=== PATIENT | female | born 1950 | race Caucasian/White ===

== ENCOUNTER → 2017-04-14 14:26 | Outpatient (CLI) | payer MEDICARE, OTHER, SELFPAY ==
--- NOTE | 2017-04-14 14:36 | XR_ITS ---
EXAM: XR lumbar spine min 4V HISTORY: ITS.REASON: LOW BACK PAIN ORDERING PHYSICIAN: Be Eddy PATIENT AGE: 67 years COMPARISON: 01/12/2013 FINDINGS: Normal alignment. There is normal alignment. Mild degenerative disc disease is present at L4-L5 with minimal anterolisthesis of L4. Facet arthritic changes are present at L4, L5, and S1. No lytic or blastic change. IMPRESSION: Mild degenerative disc disease with facet arthritic change overall not significantly changed
== END ==
PROVIDERS: PCP Internal Medicine; Visit Provider Internal Medicine
DX: M54.5 Low back pain (principal)
CPT/HCPCS: 72110

== ENCOUNTER → 2017-08-26 06:10 | Outpatient (CLI) | payer MEDICARE, OTHER, SELFPAY ==
--- NOTE | 2017-08-26 06:12 | CA_ITS ---
PROCEDURE: 2-D M-mode and color Doppler study INDICATIONS FOR THE TEST: Chest pain COPD Heart Murmur Tobacco Smoking Palpitations Fatigue Syncope Edema Hypertension+Diabetes Mellitus Rheumatic Fever SOB FOOTE Obesity Hyperlipidemia+ Family History HD Additional History CAD, DD, CHF PATIENT INFORMATION HEIGHT: 62 WEIGHT:169 GENDER: Female B/P:139/53 2-D/M-MODE INTERPRETATION: 2-D MEASUREMENTS OBSERVED VALUES IN CMS Right Ventricular Dimension (RVDd) 1.8 Interventricular Septum (Thickness)(IVsd) 0.9 Left Ventricular Internal Dimensions(LVIDd) 4.5 Left Ventricular Posterior Wall (Thickness)(LVPWd) 0.8 Aortic Root 2.9 Aortic Cusp Separation 1.8 Left Atrial Dimensions (LAD) 4.0 2D 1. Left atrium is mildly enlarged, left ventricle is normal size, mild qualitative concentric left ventricular hypertrophy, visually estimated ejection fraction 55% with no obvious regional wall motion abnormality. 2. The right atrium and right ventricle are normal size and contractility. 3. The aortic valve is minimally thickened and fibrosed. 4. The mitral and tricuspid valve are grossly normal. 5. The pulmonic valve is poorly visualized. 6. No significant pericardial effusion noted. DOPPLER INTERROGATION: Doppler interrogation of the aortic, mitral and tricuspid valvular presence of mild mitral and tricuspid regurgitation, tricuspid and jet velocity is insufficient for acquisition of the right ventricular systolic pressure, grade 1 diastolic dysfunction seen with tissue Doppler evidence of raised left atrial pressure. CONCLUSION: 1. Mildly enlarged left atrium, normal left ventricular size, mild concentric left ventricular hypertrophy, visually estimated ejection fraction 55% with no obvious regional wall motion abnormality, grade 1 diastolic dysfunction seen with tissue Doppler evidence of raised left atrial pressure. 2. Mild mitral and tricuspid regurgitation 3. No significant pericardial effusion noted.
--- NOTE | 2017-08-26 06:12 | NM_ITS ---
History and Indications: Coronary artery disease, hypertension, hyperlipidemia Procedure: Patient exercised on Raul protocol 6 minutes and 15 seconds, resting heart rate was 57 bpm, resting blood pressure 121/68, with exercise maximum heart rate achieved was 1 29 bpm which is equal to 85% of the maximum predicted heart rate and a blood pressure was 168/74. The test was started due to shortness of breath and fatigue, patient denied any complained of chest pain. Patient has adequate exercise capacity achieved 7mets of workload on treadmill, the blood pressure response to exercise was adequate. Electrocardiogram: Resting electrocardiogram showed sinus bradycardia, with exercise there is excessive baseline artifact seen, less than 1.[address] segment depression noted from the baseline EKG. The EKG portion of the exercise Myoview is nondiagnostic due to excessive baseline artifact. Cardiac stress and resting SPECT images: Cardiac stress and rest SPECT images were obtained using technetium 99 Myoview 31.3 millicuries at stress and 10.6 mCi at rest. Gated SPECT further analysis of segmental wall motion and calculation of the ejection fraction also done. Cardiac stress and rest SPECT images show a mild fixed defect in the anterior wall with normal contractility on the gated SPECT is likely secondary to soft tissue attenuation, no reversible ischemia seen. Computer derived ejection fraction is over 65% with no obvious regional wall motion abnormality, right ventricle is normal size and contractility. Conclusion: 1. The EKG portion of the exercise Myoview is nondiagnostic secondary to excessive baseline artifact, patient has adequate exercise capacity achieved 7mets of workload on treadmill, the blood pressure response to exercise was adequate, there was no exercise-induced chest discomfort. 2. No obvious scintigraphic evidence of reversible ischemia seen, computer derived ejection fraction is over 65% with no obvious regional wall motion abnormality, right ventricle is normal size and contractility. 3. Normal exercise Myoview study.
== END ==
PROVIDERS: Family Provider Internal Medicine; PCP Internal Medicine; Visit Provider Internal Medicine
DX: I25.10 Atherosclerotic heart disease of native coronary artery without angina pectoris (principal); I50.9 Heart failure, unspecified; E78.4 Other hyperlipidemia; D64.9 Anemia, unspecified
CPT/HCPCS: 78452; 93017; 93306; A9502

== ENCOUNTER → 2018-07-21 07:45 | Outpatient (CLI) | payer MEDICARE, SELFPAY ==
--- NOTE | 2018-07-21 07:50 | MR_ITS ---
MR lumbar spine wo con, MR 3-d myelogram/MRCP HISTORY: RT sided LBP XYRS. Rt leg weakness. ITS.REASON: LUMBAGO WITH RIGHT SCIATICA ORDERING PHYSICIAN: Be Eddy PATIENT AGE: 68 years Comparison: X-RAY 04-14-17. TECHNIQUE: Standard multiplanar multiecho sequences are performed without contrast. 3-D MIP and myelographic images are also rendered and reviewed FINDINGS: There is normal alignment. The spinal cord in that the L1-L2 level. L1-L2: Unremarkable. L2-L3: Unremarkable. L3-L4: Unremarkable. L4-L5: Minimal disc bulge eccentric toward the right along with facet and ligamentum flavum hypertrophy with moderate bilateral lateral recess and foraminal narrowing. Canal stenosis is present at this level at 10 mm. Focal area of facet hypertrophic change is present on the right at the superior aspect of the L4-L5 facet junction. This is causing impingement upon the right L5 nerve root and causing moderate to severe right-sided lateral recess narrowing. There is a small amount fluid in the facet joint at L4-L5 on both sides. L5-S1: Bulging disc with minimal central disc protrusion with facet and ligamentum hypertrophy with moderate bilateral foraminal narrowing. IMPRESSION: 1. L4-L5: Minimal disc bulge eccentric toward the right along with facet and ligamentum flavum hypertrophy with moderate bilateral lateral recess and foraminal narrowing. Canal stenosis is present at this level at 10 mm. Focal area of facet hypertrophic change is present on the right at the superior aspect of the L4-L5 facet junction. This is causing impingement upon the right L5 nerve root and causing moderate to severe right-sided lateral recess narrowing. There is a small amount fluid in the facet joint at L4-L5 on both sides. 2. L5-S1: Bulging disc with minimal central disc protrusion with facet and ligamentum hypertrophy with moderate bilateral foraminal narrowing
== END ==
PROVIDERS: PCP Internal Medicine; Visit Provider Internal Medicine
DX: M54.41 Lumbago with sciatica, right side
CPT/HCPCS: 72148; 76376

== ENCOUNTER → 2019-04-09 10:57 | Outpatient (CLI) | payer MEDICARE, SELFPAY ==
[2019-04-09 12:13] LABS: Anion Gap 10.8 mEq/L (5-15); Blood Urea Nitrogen 18 mg/dl (7-17); Calcium 9.6 mg/dl (8.4-10.2); Carbon Dioxide 28 mmol/L (22.0-30.0); Chloride 103 mmol/L (98-107); Estimated Glomerular Filt Rate 62 ml/min (>60); GFR (African American) 75 ML/MIN (>60); Glucose 90 mg/dl (74-100); Potassium 4.8 mmoL/L (3.5-5.1); Sodium 137 mmol/L (136-145)
== END ==
PROVIDERS: Visit Provider Internal Medicine Cardiovascular Disease
DX: E78.5 Hyperlipidemia, unspecified (principal); I11.9 Hypertensive heart disease without heart failure; I25.10 Atherosclerotic heart disease of native coronary artery without angina pectoris
CPT/HCPCS: 36415; 80048

== ENCOUNTER → 2020-01-27 08:18 | Outpatient (CLI) | payer MEDICARE, SELFPAY ==
--- NOTE | 2020-01-27 08:20 | US_ITS ---
PROCEDURE: US ABDOMEN LIMITED CLINICAL INDICATION: EPIGASTRIC PAIN,CHEST PAIN,GERD COMPARISON: No exams were available for comparison FINDINGS: PANCREAS: Unremarkable. No obvious mass or abnormal fluid collection. No ductal dilatation LIVER: No focal liver lesions demonstrated. Homogeneous echogenicity. No intrahepatic biliary ductal dilatation evident. There is appropriate direction of blood flow within a non dilated portal vein RIGHT KIDNEY: Unremarkable. Normal size and echogenicity. No hydronephrosis GALLBLADDER: No gallstones, gallbladder wall thickening, pericholecystic fluid, or biliary dilatation. IMPRESSION: Unremarkable limited abdominal ultrasound as detailed above disc Dictated by: Chin Ragsdale MD 01/27/2020 17:18 Chin Ragsdale MD in [place] 01/27/2020 17:18
--- NOTE | 2020-01-27 08:23 | FL_ITS ---
PROCEDURE: FL UPPER GI W AIR CLINICAL INDICATION: EPIGASTRIC PAIN,CHEST PAIN,GERD COMPARISON: No exams were available for comparison TECHNIQUE: FLUOROSCOPY TIME : 2 minutes and 6 seconds FINDINGS: The esophagus, stomach, and duodenum have an unremarkable appearance.There is a moderate-sized hiatal hernia which did not reduce during the course of the exam. Approximately 1/2 of the stomach is above the esophageal hiatus. No ulcer or mass evident. No mucosal abnormalities apparent. There was some esophageal dysmotility. The duodenal C-loop is nondisplaced. IMPRESSION: Moderate-sized hiatal hernia with mild esophageal dysmotility Dictated by: Chin Ragsdale MD 01/27/2020 13:34 Chin Ragsdale MD in [place] 01/27/2020 13:34
== END ==
PROVIDERS: PCP Internal Medicine; Visit Provider Internal Medicine
DX: R10.13 Epigastric pain (principal); R07.9 Chest pain, unspecified; K21.9 Gastro-esophageal reflux disease without esophagitis
CPT/HCPCS: 74246; 76705

== ENCOUNTER → 2020-05-18 09:18 | Outpatient (CLI) | payer MEDICARE, SELFPAY | PROVIDERS: PCP Internal Medicine; Visit Provider Physician Assistant | DX: E78.5 Hyperlipidemia, unspecified (principal); I10 Essential (primary) hypertension; I25.10 Atherosclerotic heart disease of native coronary artery without angina pectoris; R06.00 Dyspnea, unspecified; Z95.5 Presence of coronary angioplasty implant and graft | CPT/HCPCS: 93306 ==

== ENCOUNTER 2020-07-06 08:59 | Emergency (ER) | payer MEDICARE, SELFPAY ==
[2020-07-06 09:07] VITALS: BP 120/67; PULSE 62; RESP 14; TEMP 36.6; O2SAT 98; BMI 31.1
[2020-07-06 09:20] LABS: Apearance,Urine Turbid (Clear); Color,Urine Dark Yellow (Yellow); Glucose,Urine (UA) Negative (Negative); PH,Urine 6.5 (5.0-8.5); Protein,Urine 2+ (Negative); Specific Gravity, Urine > 1.030 (1.005-1.030)
[2020-07-06 09:21] LABS: Bilirubin,Urine Negative (Negative); Blood, Urine 4+ (Negative); Ketones,Urine Negative (Negative); Urobilinogen,Urine 1 EU/dl (0.2)
[2020-07-06 09:22] LABS: UTC Leukocyte Esterase,Urine 1+ (Negative); UTC Nitrate,Urine Positive (Negative)
--- NOTE | 2020-07-06 09:24 | HMH.EDUTC ---
[facility] [place] Clinical Impression: UTI (urinary tract infection) Qualifiers: Urinary tract infection type: site unspecified Hematuria presence: with hematuria Qualified Code(s): N39.0 - Urinary tract infection, site not specified Disposition: Home, Self-Care Condition on Discharge: Good Instructions: Urinary Tract Infection, DI for Urinary Tract Infection (UTI) Additional Instructions: Drink plenty of fluids. Take tylenol or ibuprofen for pain or fever. Take the medications as directed. Follow up with your regular doctor. GO TO THE ER FOR ANY WORSENING SYMPTOMS The pyridium will make your urine turn orange, this is an expected side effect. It will stain your clothes if it comes into contact with them. Prescriptions: Nitrofurantoin Monohyd/M-Cryst [Macrobid 100 mg Capsule] 100 mg PO BID 5 Days #10 cap Transmission Status: Received by [facility] Referrals: Be Eddy [Primary Care Provider] - Time of Disposition: 09:38 Medical Decision Making - Medical Records Medical records reviewed: No: I reviewed the patient's medical records. - [place] Inquiry Pt receiving controlled substance: No Vital Signs: 07/06/20 09:07 07/06/20 09:41 Temperature 98 F 98 F Temperature Source Oral Pulse Rate 66 Pulse Rate [Right] 62 Respiratory Rate 14 14 Blood Pressure 119/70 Blood Pressure [Right Arm] 120/67 Blood Pressure Mean [Right Arm] 84 Blood Pressure Source [Right Arm] Automatic Cuff Blood Pressure Position [Right Arm] Sitting 02 Sat by Pulse Oximetry 98 Oxygen Delivery Method Room Air - Lab Data Lab results reviewed: Yes: I reviewed the patient's lab results. Lab Results 07/06/20 09:19: Urine Color Dark yellow, Urine Appearance Turbid, Urine pH 6.5, Ur Specific [place] > 1.030 H, Urine Protein 2+, Urine Glucose (UA) Negative, Urine Ketones Negative, Urine Blood 4+, Urine Nitrate Positive A, Urine Bilirubin Negative, Urine Urobilinogen 1, Ur Leukocyte Esterase 1+ A Orders (Tests/Meds): ORDERS Category Date Time Status Urine Culture Stat Micro 07/06/20 09:15 [place] [facility] [place] - General Stated complaint: possible UTI Time Seen by Provider: 07/06/20 09:24 Mode of Arrival: Ambulatory Source of Information: Patient Limitations: No Limitations Description of Symptoms (Recalled from Triage Doc. by RN): pt c/o or burning with urination and urinary frequency. HEENT Symptoms (Recalled from RN notes): No Resp Symptoms (Recalled from RN notes): No Skin Symptoms (Recalled from RN notes): No MS Symptoms (Recalled from RN notes): No Functional Status (Recalled from RN notes): na - History of Present Illness Provider Complaint: She states that since yesterday, she has had burning while urinating and urinary frequency. - Related Data Home Medications Medication Instructions Recorded Confirmed aspirin 81 mg tablet,delayed 81 mg PO DAILY tab 07/24/17 06/13/20 release citalopram 10 mg tablet 10 mg PO DAILY tab 07/24/17 06/13/20 rosuvastatin 10 mg tablet 10 mg PO ONCE 09/11/17 06/13/20 gabapentin 100 mg capsule 100 mg PO DAILY PRN cap 03/26/19 06/13/20 pantoprazole 40 mg tablet,delayed 40 mg PO DAILY PRN tab 03/26/19 06/13/20 release estradiol 0.05 mg/24 hr semiweekly 1 patch TRANSDERMA ONCE each 10/05/19 06/13/20 transdermal patch furosemide 40 mg tablet 40 mg PO DAILY tab 05/09/20 06/13/20 ferrous sulfate 325 mg (65 mg 325 mg PO DAILY 06/13/20 06/13/20 iron) tablet Previous Rx's Medication Instructions Recorded diltiazem HCl 120 mg 120 mg PO DAILY #90 cap 07/16/19 capsule,extended release 24 hr losartan 50 mg tablet 50 mg PO DAILY #90 tab 12/07/19 spironolactone 25 mg tablet 25 mg PO DAILY #90 tab 01/26/20 metoprolol succinate 25 mg 25 mg PO DAILY #30 tab 05/09/20 tablet,extended release 24 hr Nitrofurantoin Monohyd/M-Cryst 100 mg PO BID 5 Days #10 cap 07/06/20 [Macrobid 100 mg Capsule] Allergies Allergy/AdvR
[2020-07-06 09:41] VITALS: BP 119/70; PULSE 66; RESP 14; TEMP 36.6
== END 2020-07-06 09:42 | disposition home or self-care (01) ==
PROVIDERS: Emergency Provider Nurse Practitioner Family; PCP Internal Medicine
DX: N30.00 Acute cystitis without hematuria (principal); I10 Essential (primary) hypertension; I25.10 Atherosclerotic heart disease of native coronary artery without angina pectoris; E78.5 Hyperlipidemia, unspecified; Z80.0 Family history of malignant neoplasm of digestive organs; Z88.2 Allergy status to sulfonamides; Z79.899 Other long term (current) drug therapy
CPT/HCPCS: G0463; 81003; 87086; 87088; 87186; 99202

== ENCOUNTER → 2020-08-11 16:29 | Outpatient (CLI) | payer MEDICARE, SELFPAY ==
--- NOTE | 2020-08-11 16:34 | MR_ITS ---
PROCEDURE INFORMATION: Exam: MR Lumbar Spine Without Contrast Exam date and time: 08/11/2020 4:34 PM Age: 70 years old Clinical indication: Low back pain; Left sciatica. Lt sided lbp that radiates down lt leg to ankle. Symptoms [id number]. No injury or trauma. TECHNIQUE: Imaging protocol: Multiplanar magnetic resonance images of the lumbar spine without intravenous contrast. COMPARISON: FINDINGS: Vertebrae: See Sacrum/coccyx finding. Spinal cord: Normal signal. No cord compression. L1-L2: No significant disc disease. No significant spinal canal stenosis. No neural foraminal stenosis. L2-L3: There is disc desiccation. There is mild disc bulging. There is facet arthropathy and ligamentum flavum hypertrophy. There is mild spinal canal stenosis. L3-L4: There is disc desiccation. There is mild disc bulging. Disc bulging extends into both neural foramen causing mild bilateral neural foraminal narrowing. There is facet arthropathy and ligamentum flavum hypertrophy. There is mild spinal canal stenosis. L4-L5: There is congenital spinal canal stenosis which is exacerbated by multilevel degenerative changes. Spinal canal stenosis is most severe at L4/5. There is disc desiccation. There is a moderate disc bulge with a small right foraminal disc herniation. There is moderate right-sided neuroforaminal narrowing. There is mild left-sided neuroforaminal narrowing. There is facet arthropathy and ligamentum flavum hypertrophy. There is moderate spinal canal stenosis. L5-S1: There is disc desiccation. Disc bulging extends into both neural foramen causing moderate bilateral neural foraminal narrowing, left worse than right. There is exuberant bilateral facet arthropathy and ligamentum flavum hypertrophy. There is compromise of the left lateral recess. There may be a disc herniation in this area as seen on the axial T1 weighted images. There is soft tissue fullness which obscures the descending left S1 nerve root and may abut the exiting left L5 nerve root. There is mild/moderate spinal canal stenosis. Sacrum/coccyx: There is a transitional lumbosacral segment. There is lumbarization of the S1 vertebra. Correlation with plain films prior to any future lumbar procedure is recommended to confirm accurate numbering of the lumbar spine. Soft tissues: Unremarkable. IMPRESSION: 1. There is congenital spinal canal stenosis which is exacerbated by multilevel degenerative changes. Spinal canal stenosis is most severe at L4/5. Please see details above. 2. Soft tissue fullness within the left lateral recess at L5/S1 which abuts the descending left S1 nerve root and may abut the exiting left L5 nerve root. This is not fully characterized on this noncontrast exam. Follow-up postcontrast MRI is recommended. 3. There is a transitional lumbosacral segment. There is lumbarization of the S1 vertebra. Correlation with plain films prior to any future lumbar procedure is recommended to confirm accurate numbering of the lumbar spine.
== END ==
PROVIDERS: PCP Internal Medicine; Visit Provider Internal Medicine
DX: M54.42 Lumbago with sciatica, left side (principal)
CPT/HCPCS: 72148; 76376

== ENCOUNTER 2020-12-28 15:00 | Outpatient (RCR) | payer MEDICARE, SELFPAY | END 2020-12-28 15:05 | disposition home or self-care (01) | LOC: PT 15:00 | PROVIDERS: PCP Internal Medicine; Visit Provider Orthopaedic Surgery Orthopaedic Surgery of the Spine | DX: Z47.89 Encounter for other orthopedic aftercare (principal); M51.26 Other intervertebral disc displacement, lumbar region | CPT/HCPCS: 97014; 97110; 97113; 97163; 97164; G0283 ==

== ENCOUNTER → 2021-05-15 16:53 | Outpatient (CLI) | payer MEDICARE, SELFPAY ==
[2021-05-15 17:23] LABS: Basophils # 0.1 K/mm3 (0-0.2); Basophils % 0.7 % (0.1-2.0); Eosinophils # 0.3 K/mm3 (0.0-0.4); Eosinophils % 3.8 % (0.1-12.0); Hematocrit 34.8 % (37.0-47.0); Hemoglobin 11.5 g/dL (12.2-16.2); Lymphocytes # 1.8 K/mm3 (0.7-4.5); Mean Corpuscular Hemoglobin 30.4 pg (27.0-31.2); Mean Corpuscular Volume 92.2 fl (81-99); Mean Platelet Volume 8.9 fl (7.4-10.4); Monocytes # 0.6 K/mm3 (0.1-1.0); Monocytes % 7.7 % (1.7-9.3); Neutrophils # 4.8 K/mm3 (1.8-7.8); Neutrophils % 63.8 % (37.0-80.0); Platelet Count 374 K/mm3 (142-424); Red Blood Count 3.78 M/mm3 (4.20-5.40); Red Cell Distribution Width 15.9 % (11.5-17.5); White Blood Count 7.6 K/mm3 (4.8-10.8)
[2021-05-15 17:51] LABS: Erythrocyte Sedimentation Rate 21 mm/hr (0-30)
[2021-05-15 18:29] LABS: Alanine Aminotransferase 21 U/L (12-78); Albumin Level 4.1 g/dl (3.5-5.0); Albumin/Globulin Ratio 1.8 (1.1-1.8); Alkaline Phosphatase 88 U/L (38-126); Aspartate Amino Transferase 31 U/L (14-36); Bilirubin,Total 0.6 mg/dl (0.2-1.3); Blood Urea Nitrogen 20 mg/dl (7-17); Carbon Dioxide 27 mmol/L (22.0-30.0); Chloride 106 mmol/L (98-107); Chol/HDL Ratio 2.7 (1-3.5); Cholesterol 152 mg/dl (140-200); Estimated Glomerular Filt Rate 61 ml/min (>60); GFR (African American) 74 ML/MIN (>60); Globulin 2.3 g/dL (1.3-3.2); Glucose 82 mg/dl (74-100); HDL Cholesterol 57 mg/dl (40-60); Magnesium 1.8 mg/dl (1.6-2.3); Sodium 139 mmol/L (136-145); Total Protein,Serum 6.4 g/dl (6.3-8.2); Triglycerides 210 mg/dl (30-150); VLDL Cholesterol 42 mg/dL (0-40)
[2021-05-15 19:00] LABS: Thyroid Stimulating Hormone 1.67 uIU/mL (0.465-4.68)
[2021-05-15 19:12] LABS: Iron 105 ug/dL (37-170)
[2021-05-15 19:19] LABS: Vitamin B12 682 pg/mL (239-931)
[2021-05-15 19:21] LABS: Total Iron Binding Capacity 452 ug/dL (265-497)
[2021-05-15 23:51] LABS: Creatine Kinase 59 U/L (30-135)
== END ==
PROVIDERS: Visit Provider Internal Medicine
DX: I25.10 Atherosclerotic heart disease of native coronary artery without angina pectoris (principal); E03.9 Hypothyroidism, unspecified; E78.5 Hyperlipidemia, unspecified; R53.83 Other fatigue; D50.9 Iron deficiency anemia, unspecified; M79.10 Myalgia, unspecified site
CPT/HCPCS: 80053; 80061; 82550; 82607; 83540; 83550; 83735; 84443; 85025; 85651

== ENCOUNTER → 2021-09-25 15:32 | Outpatient (CLI) | payer MEDICARE, SELFPAY ==
--- NOTE | 2021-09-25 15:37 | XR_ITS ---
FINAL REPORT CLINICAL HISTORY: RT HIP PAIN FINDINGS: 2 views of the right hip and an AP pelvis were obtained. There is no acute fracture or dislocation. There are moderate degenerative changes of the right hip. There is postoperative change in the lower lumbar spine. IMPRESSION: Moderate right hip degenerative change. Reviewed, Interpreted and Dictated by Derrick Moreira III, MD Transcribed by Bashir Huang Authenticated and [facility]
== END ==
PROVIDERS: PCP Internal Medicine; Visit Provider Internal Medicine
DX: M25.551 Pain in right hip (principal)
CPT/HCPCS: 73502

== ENCOUNTER → 2021-09-25 16:49 | Outpatient (CLI) | payer MEDICARE, SELFPAY ==
[2021-09-25 17:27] LABS: Basophils # 0.1 K/mm3 (0-0.2); Basophils % 1.1 % (0.1-2.0); Eosinophils # 0.3 K/mm3 (0.0-0.4); Eosinophils % 3.5 % (0.1-12.0); Hematocrit 43.6 % (37.0-47.0); Hemoglobin 13.6 g/dL (12.2-16.2); Lymphocytes # 2.3 K/mm3 (0.7-4.5); Lymphocytes % 31.3 % (10-50); Mean Corpuscular HGB Conc 31.2 g/dL (31.8-35.4); Mean Corpuscular Hemoglobin 31.3 pg (27.0-31.2); Mean Corpuscular Volume 100.4 fl (81-99); Mean Platelet Volume 7.9 fl (7.4-10.4); Monocytes # 0.6 K/mm3 (0.1-1.0); Monocytes % 7.7 % (1.7-9.3); Neutrophils # 4.1 K/mm3 (1.8-7.8); Neutrophils % 56.4 % (37.0-80.0); Platelet Count 356 K/mm3 (142-424); Red Blood Count 4.35 M/mm3 (4.20-5.40); Red Cell Distribution Width 13.2 % (11.5-17.5); Reticulocyte % (Auto) 1.1 % (0.9-3.2); White Blood Count 7.3 K/mm3 (4.8-10.8)
== END ==
PROVIDERS: PCP Internal Medicine; Visit Provider Internal Medicine
DX: D50.9 Iron deficiency anemia, unspecified (principal)
CPT/HCPCS: 73502; 85025; 85044

== ENCOUNTER → 2022-03-25 10:01 | Outpatient (CLI) | payer MEDICARE, SELFPAY ==
[2022-03-25 11:06] LABS: Basophils % 0.7 % (0.1-2.0); Eosinophils # 0.4 K/mm3 (0.0-0.4); Eosinophils % 6.4 % (0.1-12.0); Hematocrit 41.3 % (37.0-47.0); Hemoglobin 13.3 g/dL (12.2-16.2); Lymphocytes # 1.6 K/mm3 (0.7-4.5); Lymphocytes % 28.7 % (10-50); Mean Corpuscular HGB Conc 32.2 g/dL (31.8-35.4); Mean Corpuscular Hemoglobin 32.4 pg (27.0-31.2); Mean Corpuscular Volume 100.6 fl (81-99); Mean Platelet Volume 7.6 fl (7.4-10.4); Monocytes # 0.4 K/mm3 (0.1-1.0); Monocytes % 7.6 % (1.7-9.3); Neutrophils # 3.2 K/mm3 (1.8-7.8); Neutrophils % 56.6 % (37.0-80.0); Platelet Count 378 K/mm3 (142-424); Red Blood Count 4.11 M/mm3 (4.20-5.40); Red Cell Distribution Width 11.6 % (11.5-17.5); White Blood Count 5.6 K/mm3 (4.8-10.8)
[2022-03-25 12:18] LABS: Alanine Aminotransferase 23 U/L (12-78); Albumin Level 4.2 g/dl (3.5-5.0); Albumin/Globulin Ratio 1.8 (1.1-1.8); Alkaline Phosphatase 85 U/L (38-126); Anion Gap 8.6 mEq/L (5-15); Aspartate Amino Transferase 28 U/L (14-36); Bilirubin,Total 0.3 mg/dl (0.2-1.3); Blood Urea Nitrogen 20 mg/dl (7-17); Calcium 8.8 mg/dl (8.4-10.2); Carbon Dioxide 29 mmol/L (22.0-30.0); Chloride 107 mmol/L (98-107); Cholesterol 170 mg/dl (140-200); Estimated Glomerular Filt Rate 54 ml/min (>60); GFR (African American) 66 ML/MIN (>60); Globulin 2.4 g/dL (1.3-3.2); Glucose 85 mg/dl (74-100); HDL Cholesterol 57 mg/dl (40-60); Potassium 4.6 mmoL/L (3.5-5.1); Sodium 140 mmol/L (136-145); Total Protein,Serum 6.6 g/dl (6.3-8.2); Triglycerides 135 mg/dl (30-150); VLDL Cholesterol 27 mg/dL (0-40)
[2022-03-25 13:08] LABS: Vitamin B12 764 pg/mL (239-931)
== END ==
PROVIDERS: PCP Internal Medicine; Visit Provider Internal Medicine
DX: I25.10 Atherosclerotic heart disease of native coronary artery without angina pectoris (principal); I10 Essential (primary) hypertension; D50.9 Iron deficiency anemia, unspecified; E53.8 Deficiency of other specified B group vitamins; E78.5 Hyperlipidemia, unspecified
CPT/HCPCS: 36415; 80053; 80061; 82607; 85025

== ENCOUNTER → 2022-09-18 17:26 | Outpatient (CLI) | payer MEDICARE, SELFPAY ==
[2022-09-18 19:28] LABS: Basophils % 0.3 % (0.1-2.0); Eosinophils # 0.3 K/mm3 (0.0-0.4); Eosinophils % 4.2 % (0.1-12.0); Hematocrit 40.1 % (37.0-47.0); Hemoglobin 13.1 g/dL (12.2-16.2); Lymphocytes # 1.9 K/mm3 (0.7-4.5); Lymphocytes % 25.8 % (10-50); Mean Corpuscular HGB Conc 32.7 g/dL (31.8-35.4); Mean Corpuscular Hemoglobin 32.6 pg (27.0-31.2); Mean Corpuscular Volume 99.8 fl (81-99); Mean Platelet Volume 8.9 fl (7.4-10.4); Monocytes # 0.5 K/mm3 (0.1-1.0); Monocytes % 7.2 % (1.7-9.3); Neutrophils # 4.6 K/mm3 (1.8-7.8); Neutrophils % 62.4 % (37.0-80.0); Platelet Count 362 K/mm3 (142-424); Red Blood Count 4.02 M/mm3 (4.20-5.40); Red Cell Distribution Width 11.8 % (11.5-17.5); White Blood Count 7.4 K/mm3 (4.8-10.8)
[2022-09-18 21:39] LABS: Free T4 (Free Thyroxine) 0.54 ng/dl (0.78-2.19)
== END ==
PROVIDERS: PCP Internal Medicine; Visit Provider Internal Medicine
DX: R61 Generalized hyperhidrosis (principal); R22.43 Localized swelling, mass and lump, lower limb, bilateral; R53.83 Other fatigue; K21.9 Gastro-esophageal reflux disease without esophagitis; I10 Essential (primary) hypertension; E78.5 Hyperlipidemia, unspecified; D64.9 Anemia, unspecified
CPT/HCPCS: 84439; 84443; 85025

== ENCOUNTER 2023-03-24 15:28 | Outpatient (CLI) | payer MEDICARE, SELFPAY ==
--- NOTE | 2023-03-24 15:37 | XR_ITS ---
FINAL REPORT CLINICAL HISTORY: RT HIP PAIN FINDINGS: RIGHT HIP 3 views of the right hip demonstrate no acute fracture or dislocation. There are moderate degenerative changes. Postoperative changes are noted of the lower lumbar spine. The visualized bony structures are well aligned. No soft tissue abnormality is seen. IMPRESSION: No acute bony abnormality. Reviewed, Interpreted and Dictated by Derrick Moreira III, MD Transcribed by Marcia Ruiz Authenticated and [facility]
== END 2023-03-24 23:59 ==
LOC: RAD 15:30
PROVIDERS: PCP Internal Medicine; Visit Provider Internal Medicine
DX: M25.551 Pain in right hip (principal)
CPT/HCPCS: 73502

== ENCOUNTER 2023-06-09 11:00 | Outpatient (RCR) | payer MEDICARE, SELFPAY | END 2023-06-09 11:05 | disposition home or self-care (01) | LOC: PT 11:00 | PROVIDERS: Visit Provider Orthopaedic Surgery | DX: M16.11 Unilateral primary osteoarthritis, right hip (principal) | CPT/HCPCS: 97010; 97014; 97110; 97112; 97163; 97530; G0283 ==

== ENCOUNTER 2023-07-28 16:41 | Outpatient (CLI) | payer MEDICARE, SELFPAY ==
[2023-07-28 16:12] LABS: Basophils # 0.1 K/mm3 (0-0.2); Basophils % 0.8 % (0.1-2.0); Eosinophils # 0.3 K/mm3 (0.0-0.4); Eosinophils % 3.8 % (0.1-12.0); Hemoglobin 12.9 g/dL (12.2-16.2); Lymphocytes # 1.8 K/mm3 (0.7-4.5); Lymphocytes % 25.6 % (10-50); Mean Corpuscular HGB Conc 33.1 g/dL (31.8-35.4); Mean Corpuscular Hemoglobin 33.4 pg (27.0-31.2); Mean Corpuscular Volume 100.8 fl (81-99); Mean Platelet Volume 8.6 fl (7.4-10.4); Monocytes # 0.4 K/mm3 (0.1-1.0); Neutrophils # 4.5 K/mm3 (1.8-7.8); Neutrophils % 63.6 % (37.0-80.0); Platelet Count 378 K/mm3 (142-424); Red Blood Count 3.87 M/mm3 (4.20-5.40); Red Cell Distribution Width 12.4 % (11.5-17.5); Reticulocyte % (Auto) 0.9 % (0.9-3.2); White Blood Count 7.1 K/mm3 (4.8-10.8)
[2023-07-28 16:42] LABS: Iron 135 ug/dL (37-170)
[2023-07-28 16:52] LABS: Total Iron Binding Capacity 318 ug/dL (265-497)
[2023-07-28 19:14] LABS: Vitamin B12 > 1000 pg/mL (239-931)
== END 2023-07-28 23:59 | disposition home or self-care (01) ==
LOC: LAB.DROPOF 16:41
PROVIDERS: PCP Internal Medicine; Visit Provider Internal Medicine
DX: E53.8 Deficiency of other specified B group vitamins (principal); D50.9 Iron deficiency anemia, unspecified; Z68.31 Body mass index [BMI] 31.0-31.9, adult
CPT/HCPCS: 82607; 83540; 83550; 85025; 85044

== ENCOUNTER 2023-08-22 12:01 | Outpatient (CLI) | payer MEDICARE, SELFPAY | END 2023-08-22 23:59 | disposition home or self-care (01) | LOC: LAB.DROPOF 08-25 12:02 | PROVIDERS: PCP Internal Medicine; Visit Provider Student in an Organized Health Care Education/Training Program | DX: N39.0 Urinary tract infection, site not specified (principal) | CPT/HCPCS: 87086 ==

== ENCOUNTER 2023-08-26 14:09 | Outpatient (CLI) | payer MEDICARE, SELFPAY | END 2023-08-26 23:59 | disposition home or self-care (01) | LOC: LAB 14:10 | PROVIDERS: PCP Internal Medicine; Visit Provider Student in an Organized Health Care Education/Training Program | DX: N39.0 Urinary tract infection, site not specified (principal) | CPT/HCPCS: 87086 ==

== ENCOUNTER 2024-01-29 10:54 | Outpatient (CLI) | payer MEDICARE, SELFPAY ==
--- NOTE | 2024-01-29 11:03 | CA_ITS ---
APPROVED REPORT EXAM: Comprehensive 2D, Doppler, and color-flow Echocardiogram Garment Sewing Machine Operator: Janice Trujillo CRT Ht: 5 ft 2 in Wt: 169lbs BSA: 1.78 BP: 123/64 mmHg Indications: Shortness of Breath, Hyperlipidemia, Hypertension/HDD 2D Dimensions Left Atrium 3.39 cm LA Volume 45.40 mL LVOT 1.70 cm (M/F) 1.5-2.5 LA Volume Index 25.50 mL/m2 (M/F) 16-34 EF AP4 64.60 % GL Strain -21.4 % M-Mode Dimensions RVDd 1.30 cm (0.9-2.6) LVDd 4.61 cm (3.5-5.7) Ao Diam 3.17 cm (2.0-3.7) LVDs 2.46 cm (3.5-5.7) IVSd 1.03 cm (0.6-1.1) PWd 0.66 cm (0.6-1.1) EF (Teich) 78.10% FS 46.60% EDV (Teich) 97.80 mL ESV (Teich) 21.40 mL LV Diastology E Decel Time 144 (160-240 msec) E/A Ratio 0.97 MED E' 7.4 (>= 7 cm/sec) MED A' 9.40 cm/s E'/MED E' Ratio 10.20 (<= 14) LAT E' 5.4 (>= 10 cm/sec) LAT A' 21.10 cm/s E/LAT E' Ratio 13.98 (<= 14) Aortic Valve AoV Peak Deuce. 139.0 (50-130 cm/s) AO Peak GR. 7.80 mmHg Mitral Valve MV E Max Deuce. 76.0 (40-130 cm/s) MV A Velocity 78.0 (40-130 cm/s) E/A Ratio 0.97 MV Decel. Time 144 (160-240 ms) Tricuspid Valve TR P. Velocity 266.00 cm/s RAP Estimate 10.00 mmHg RVSP 38.20 mmHg Left Ventricle The left ventricle is normal size. The left ventricular systolic function is normal. The left ventricular ejection fraction is within the normal range. There is normal left ventricular wall thickness. There is normal LV segmental wall motion. The left ventricular diastolic function is normal. LVEF is 55%. Right Ventricle The right ventricle is normal size. The right ventricular systolic function is normal. Atria The left atrium size is grossly normal in size, but there is significant haziness within the LA cavity, making the visualization of the cavity difficult in this study. This is likely due to echo artifact, but cannot rule out entirely an echodensity within the LA cavity. The right atrium size is normal. Aortic Valve The aortic valve is normal in structure. There is no aortic valvular stenosis. No aortic regurgitation is present. Mitral Valve The mitral valve is normal in structure. No evidence of mitral valve stenosis. Trace mitral regurgitation. Tricuspid Valve Tricuspid valve is grossly normal in structure and function. Trace tricuspid regurgitation. There is insufficient TR jet to estimate RVSP. Pulmonic Valve The pulmonary valve is normal in structure. Trace pulmonic regurgitation. Great Vessels The aortic root is normal in size. IVC is normal in size and collapses >50% with inspiration. Pericardium There is no pericardial effusion. Other Information Study Quality: Fair Conclusion Normal biventricular systolic function. No significant valvular stenosis or regurgitation. The left atrium size is grossly normal in size, but there is significant haziness within the LA cavity, making the visualization of the cavity difficult in this study. This is likely due to echo artifact, but cannot rule out entirely an echodensity within the LA cavity. In the setting of presence of symptoms and inconclusive LA findings (including possible LA echodensity), further evaluation with cardiac MRI (mass protocol: possible LA mass) is suggested to rule out LA echodensity. Electronically signed by : Teresita Ramos MD 02/10/2024 08:42:37
== END 2024-01-29 23:59 | disposition home or self-care (01) ==
LOC: RT 10:55
PROVIDERS: PCP Internal Medicine; Visit Provider Physician Assistant
DX: I11.0 Hypertensive heart disease with heart failure (principal); I50.30 Unspecified diastolic (congestive) heart failure; R06.00 Dyspnea, unspecified
CPT/HCPCS: 93306

== ENCOUNTER 2024-02-25 09:27 | Outpatient (CLI) | payer MEDICARE, SELFPAY ==
[2024-02-25 09:57] LABS: Blood Urea Nitrogen 19 mg/dl (7-17); Estimated Glomerular Filt Rate 61 ml/min (>60); GFR (African American) 74 ML/MIN (>60)
[2024-02-25] MEDS: SODIUM CHLORIDE 0.9% 10ML SYR (RAD ONLY) 10 ML IV (13:00)
[2024-02-25] MEDS: GADOTERIDOL INJ 20ML SYRINGE 18 ML IV (13:00)
[2024-02-25] MEDS: 0.9 % SODIUM CHLORIDE 50 ML VIAL 20 ML IV (13:00)
== END 2024-02-25 23:59 | disposition home or self-care (01) ==
PROVIDERS: PCP Internal Medicine; Visit Provider Physician Assistant
DX: I25.10 Atherosclerotic heart disease of native coronary artery without angina pectoris (principal); R06.09 Other forms of dyspnea; I51.89 Other ill-defined heart diseases
CPT/HCPCS: 36415; 75561; 82565; 84520; A9576

== ENCOUNTER 2024-03-22 10:30 | Outpatient (CLI) | payer MEDICARE, SELFPAY ==
[2024-03-22 13:01] LABS: Basophils % 0.6 % (0.1-2.0); Eosinophils # 0.3 K/mm3 (0.0-0.4); Eosinophils % 5.6 % (0.1-12.0); Hematocrit 38.9 % (37.0-47.0); Hemoglobin 13.2 g/dL (12.2-16.2); Lymphocytes # 1.6 K/mm3 (0.7-4.5); Lymphocytes % 31.1 % (10-50); Mean Corpuscular HGB Conc 33.9 g/dL (31.8-35.4); Mean Corpuscular Hemoglobin 32.8 pg (27.0-31.2); Mean Corpuscular Volume 96.8 fl (81-99); Mean Platelet Volume 10.6 fl (7.4-10.4); Monocytes # 0.6 K/mm3 (0.1-1.0); Monocytes % 11.7 % (1.7-9.3); Neutrophils # 2.7 K/mm3 (1.8-7.8); Neutrophils % 50.8 % (37.0-80.0); Platelet Count 349 K/mm3 (142-424); Red Blood Count 4.02 M/mm3 (4.20-5.40); Red Cell Distribution Width 11.9 % (11.5-17.5); White Blood Count 5.2 K/mm3 (4.8-10.8)
[2024-03-22 13:42] LABS: Albumin Level 4.1 g/dl (3.5-5.0); Chloride 107 mmol/L (98-107); Potassium 4.6 mmoL/L (3.5-5.1); Sodium 140 mmol/L (136-145)
[2024-03-22 13:45] LABS: Alanine Aminotransferase 25 U/L (12-78); Albumin/Globulin Ratio 1.9 (1.1-1.8); Alkaline Phosphatase 85 U/L (38-126); Anion Gap 11.6 mEq/L (5-15); Aspartate Amino Transferase 33 U/L (14-36); Bilirubin,Total 0.4 mg/dl (0.2-1.3); Blood Urea Nitrogen 16 mg/dl (7-17); Calcium 8.9 mg/dl (8.4-10.2); Carbon Dioxide 26 mmol/L (22.0-30.0); Cholesterol 161 mg/dl (140-200); Estimated Glomerular Filt Rate 61 ml/min (>60); GFR (African American) 74 ML/MIN (>60); Globulin 2.2 g/dL (1.3-3.2); Glucose 82 mg/dl (74-100); Total Protein,Serum 6.3 g/dl (6.3-8.2); Triglycerides 113 mg/dl (30-150); VLDL Cholesterol 23 mg/dL (0-40)
[2024-03-22 13:46] LABS: Chol/HDL Ratio 2.8 (1-3.5); HDL Cholesterol 57 mg/dl (40-60)
[2024-03-22 13:58] LABS: Direct LDL Cholesterol 74.95 mg/dL (100-129)
[2024-03-22 14:54] LABS: Vitamin B12 886 pg/mL (239-931)
== END 2024-03-22 23:59 | disposition home or self-care (01) ==
LOC: LAB.DROPOF 03-23 10:34
PROVIDERS: PCP Internal Medicine; Visit Provider Internal Medicine
DX: D50.9 Iron deficiency anemia, unspecified (principal); E53.8 Deficiency of other specified B group vitamins; I10 Essential (primary) hypertension; E78.5 Hyperlipidemia, unspecified; I25.10 Atherosclerotic heart disease of native coronary artery without angina pectoris
CPT/HCPCS: 80053; 80061; 82607; 85025

== ENCOUNTER 2024-05-13 11:22 | Outpatient (CLI) | payer MEDICARE, SELFPAY | END 2024-05-13 23:59 | disposition home or self-care (01) | LOC: RT 11:23 | PROVIDERS: PCP Internal Medicine; Visit Provider Internal Medicine | DX: I49.1 Atrial premature depolarization (principal); I49.3 Ventricular premature depolarization; R07.9 Chest pain, unspecified | CPT/HCPCS: 93225; 93227 ==

== ENCOUNTER 2024-06-01 07:37 | Outpatient (CLI) | payer MEDICARE, SELFPAY ==
--- NOTE | 2024-06-01 | CA_ITS ---
APPROVED REPORT Exam: Pharmacologic Technologist: Margi Andrews Ht: 5 ft 2 in Wt: 170 lbs BSA: 1.78 m2 HR: 60 bpm BP: 126/58 mmHg Stress Test Details Test: Lexiscan HR Resting HR: 60 bpm Max Heart Rate (APMHR): 144.625859 bpm Max HR Achieved: 98 bpm Target HR (85% APMHR): 122.887527 bpm % of APMHR: 68.06 Recovery HR: 73 bpm BP Resting BP: 126.0/58.0 mmHg Max BP: 133.0/66.0 mmHg Recovery BP: 127.0/59.0 mmHg ECG Resting ECG: Normal sinus rhythm Stress ECG Conclusion Symptoms: Headache, dyspnea Arrhythmias/Ectopy: - ST-T Changes: Less than [address] depression Conclusion: EKG unremarkable due to Lexiscan infusion. Electronically signed by : Teresita Ramos MD 06/01/2024 15:24:40
--- OUTSIDE RECORDS SUMMARY | 2024-06-01 07:39 | XMS_ITS ---
Author Organization Unknown TREATMENT PLAN [facility] Start Date Provider Encounter for Check-up [phone] [facility]
--- NOTE | 2024-06-01 08:00 | NM_ITS ---
APPROVED REPORT Exam: Nuclear Stress Test Indication: Chest pain, HTN, High cholesterol, Family history, CAD Patient Location: Outpatient Stress Tech: Margi RBOWN Tech:Loree Pathak, ARRT, RT (R)(N) Ht: 5 ft 2 in Wt: 167 lbs Bra Size: 38D HR: 60 bpm BP: 126/56 mmHg BSA: 1.77 m2 TID: 1.53 BMI: 30.5 History: Chest pain, HTN, High cholesterol, Family history, CAD Procedure: Patient received 0.4 mg of intravenous AdenosineLexiscan, resting heart rate 60 bpm, resting blood pressure 126/56 mmHg, with Lexiscan maximum heart rate achieved was 99 bpm which is % of the maximum predicted heart rate and blood pressure was 133/66 mmHg. With Lexiscan, patient denied any complaint of chest pain. Cardiac Stress and Resting SPECT Images: Cardiac Stress and Resting SPECT images were obtained using technetium 99m Myoview 31.6 mCi stress and 10.60 mCi at rest. Resting and stress imaging in supine upon positions demonstrate no evidence of fixed or reversible perfusion defects. There is increase in transient ischemic dilatation ratio (TID 1.53), suggestive of possible multivessel disease or balanced ischemia. Gated imaging demonstrates normal global and regional LV systolic function. LVEF is calculated at 72%. Conclusion: No evidence of fixed or reversible perfusion defects. There is increase in transient ischemic dilatation ratio (TID 1.53), suggestive of possible multivessel disease or balanced ischemia. Gated imaging demonstrates normal global and regional LV systolic function. LVEF is calculated at 72%. Electronically signed by : Teresita Ramos MD 06/01/2024 12:09:57
[2024-06-01] MEDS: SODIUM CHLORIDE 0.9% 10ML SYR (RAD ONLY) 10 ML IV ×2 (09:47)
[2024-06-01] MEDS: REGADENOSON 0.4MG/5ML SYRINGE 0.4 MG IV (09:47)
[2024-06-01] MEDS: ISOTOPE MYOVIEW (PER STUDY) 1 DOSE IV (09:47)
== END 2024-06-01 23:59 | disposition home or self-care (01) ==
LOC: RAD 07:38
PROVIDERS: PCP Internal Medicine; Visit Provider Physician Assistant
DX: I11.0 Hypertensive heart disease with heart failure (principal); I25.10 Atherosclerotic heart disease of native coronary artery without angina pectoris; I50.30 Unspecified diastolic (congestive) heart failure; R07.9 Chest pain, unspecified; M79.602 Pain in left arm; R06.00 Dyspnea, unspecified; Z95.5 Presence of coronary angioplasty implant and graft; E78.5 Hyperlipidemia, unspecified
CPT/HCPCS: 78452; 93017; 93018; A9502; J2785

== ENCOUNTER 2024-06-07 08:45 | Day surgery (SDC) | payer MEDICARE, SELFPAY ==
[2024-06-07] VITALS (12 sets, daily range): BP systolic 88–129; BP diastolic 51–90; PULSE 60–71; RESP 16–20; TEMP 36.7; O2SAT 93–97; BMI 31.4
--- NOTE | 2024-06-07 07:10 | IR_ITS ---
APPROVED REPORT Patient Location: Outpatient B Operator: Ramiro Hawley, RT (R) PROCEDURES Left heart catheterization Left ventriculogram Selective coronary angiogram INDICATION Known coronary artery disease, Abnormal Myoview, Angina pectoris Informed consent was obtained prior to the procedure. COMPLICATIONS NONE Estimated Blood Loss: LESS THAN 10 ML TECHNIQUE One percent lidocaine used to anesthetize the right anterior aspect of the wrist. The right radial artery was accessed via the Seldinger technique. A 6 Belgian sheath was placed in the right radial artery. 2.5 mg of Verapamil, 800 mcg of nitroglycerin, 1mg Lidocaine and 5000 U Heparin were given through the arterial sheath. The 6 Belgian JL 3 catheter was also used to perform left heart catheterization, left ventriculogram and selective coronary angiogram. At the end of the procedure the sheath was removed good hemostasis was achieved using Traclet band, patient was transferred to the postop holding area in stable condition. ANGIOGRAPHIC RESULTS The left main artery Normal The left anterior descending artery Proximally normal with a mid vessel stent which is widely patent with minimal in-stent restenosis. Distal to the stent the mid and distal LAD is highly tortuous and the LAD does wrap the apex The circumflex artery Nondominant tortuous with 10% luminal regularities The right coronary artery Dominant with 30 to 40% concentric in-stent restenosis within the midportion of the right coronary stent The REYNOSO ventriculogram reveals Normal 65% The left ventricular end-diastolic pressure 15 mmHg IMPRESSION Patent coronary arteries as described above with mild to moderate nonflow limiting in-stent restenosis within the mid dominant right coronary Normal ejection fraction Normal LVEDP Highly tortuous arteries consistent with hypertensive heart disease PLAN 1. Medical management 2. Risk factor modification Electronically signed by : Thien Tavares MD 06/07/2024 10:46:07
[2024-06-07 09:12] LABS: Basophils % 0.5 % (0.1-2.0); Eosinophils # 0.3 Kmm3 (0.0-0.4); Eosinophils % 5.8 % (0.1-12.0); Hematocrit 36.5 % (37.0-47.0); Hemoglobin 12.3 g/dL (12.2-16.2); Lymphocytes # 1.7 K/mm3 (0.7-4.5); Lymphocytes % 28.1 % (10-50); Mean Corpuscular HGB Conc 33.7 g/dL (31.8-35.4); Mean Corpuscular Hemoglobin 32.7 pg (27.0-31.2); Mean Corpuscular Volume 97.1 fl (81-99); Mean Platelet Volume 9.4 fl (7.4-10.4); Monocytes # 0.6 K/mm3 (0.1-1.0); Monocytes % 10.8 % (1.7-9.3); Neutrophils # 3.2 K/mm3 (1.8-7.8); Neutrophils % 54.6 % (37.0-80.0); Nucleated Red Blood Cells # 0 10^3/uL; Nucleated Red Blood Cells % 0 %; Platelet Count 319 K/mm3 (142-424); Red Blood Count 3.76 M/mm3 (4.20-5.40); Red Cell Distribution Width 11.5 % (11.5-17.5); Red Cell Distribution Width-SD 40.9 fL; White Blood Count 5.9 K/mm3 (4.8-10.8)
[2024-06-07 09:21] LABS: Chloride 109 mmol/L (98-107); Potassium 3.9 mmoL/L (3.5-5.1); Sodium 140 mmol/L (136-145)
[2024-06-07 09:24] LABS: Anion Gap 8.9 mEq/L (5-15); Blood Urea Nitrogen 13 mg/dl (7-17); Calcium 8.7 mg/dl (8.4-10.2); Carbon Dioxide 26 mmol/L (22.0-30.0); Creatinine Clearance Estimated 59 mL/min (50-200); Estimated Glomerular Filt Rate 54 ml/min (>60); GFR (African American) 65 ML/MIN (>60); Glucose 91 mg/dl (74-100)
[2024-06-07] MEDS: diphenhydrAMINE 50MG/ML VIAL 50 MG IV (10:11)
[2024-06-07] MEDS: HEPARIN 1,000 UNITS/ML 10ML VIAL (CATH LAB) 5000 UNIT IV (10:11)
[2024-06-07] MEDS: NITROGLYCERIN 800MCG/8ML SYR (CATH LAB) 800 MCG IA (10:11)
[2024-06-07] MEDS: 0.9 % SODIUM CHLORIDE 500 ML 25 ML IV (10:11)
[2024-06-07] MEDS: LIDOCAINE 1% 10ML MDV 10 ML IJ ×2 (10:11)
[2024-06-07] MEDS: HEPARIN 1,000 UNITS/500ML NS (CATH LAB) 3000 UNIT IV (10:11)
[2024-06-07] MEDS: FENTANYL 100MCG/2ML VIAL 50 MCG IV (10:12)
[2024-06-07] MEDS: MIDAZOLAM HCL 1MG/ML 5ML VIAL 1 MG IV (10:12)
[2024-06-07] MEDS: VERAPAMIL 2.5MG/ML 2ML VIAL 2.5 MG IV (10:12)
[2024-06-07] MEDS: ACETAMINOPHEN 325MG TAB 650 MG PO (12:48)
--- NOTE | 2024-06-07 12:50 | SUR.PHASEII ---
pt c/o of headache. pt requested tylenol,however tylenol listed under allergy list. pt stated that she was allergic to percocet,but takes tylenol @ home. tylenol ordered per MD and given for c/o headache.
[2024-06-07] MEDS: IOPAMIDOL-370 (76%);100ML BOTTLE 50 ML IV (13:09)
== END 2024-06-07 13:45 | disposition home or self-care (01) ==
LOC: CATHLAB 08:45
PROVIDERS: PCP Internal Medicine; Visit Provider Internal Medicine
DX: I25.118 Atherosclerotic heart disease of native coronary artery with other forms of angina pectoris (principal); I11.0 Hypertensive heart disease with heart failure; I50.30 Unspecified diastolic (congestive) heart failure; T82.855A Stenosis of coronary artery stent, initial encounter; M79.602 Pain in left arm; E78.5 Hyperlipidemia, unspecified; R07.9 Chest pain, unspecified; R94.39 Abnormal result of other cardiovascular function study; Z88.0 Allergy status to penicillin; Z88.2 Allergy status to sulfonamides; Z88.1 Allergy status to other antibiotic agents; Z88.8 Allergy status to other drugs, medicaments and biological substances; Z79.899 Other long term (current) drug therapy; Z88.5 Allergy status to narcotic agent; Y83.1 Surgical operation with implant of artificial internal device as the cause of abnormal reaction of the patient, or of later complication, without mention of misadventure at the time of the procedure
CPT/HCPCS: 80048; 85025; 93458; 99152; C1725; C1769; J1200; J1644; J3010; Q9967

== ENCOUNTER 2024-11-11 15:30 | Outpatient (CLI) | payer MEDICARE, SELFPAY ==
--- OUTSIDE RECORDS SUMMARY | 2024-11-12 10:28 | XMS_ITS | Clinical Summary ---
Author Organization [facility] Address [address] [place] [address] Care Team Providers Care Sports Bookmaker Name Role Phone Be Eddy MD Primary Care Provider [phone] Social History Tobacco Use Types Packs/Day Years Used Date Smoking Tobacco: Never Assessed Comments Unknown Sex and Gender Information Value Date Recorded Sex Assigned at Not on file Legal Sex Female 8:06 PM EDT Gender Identity Not on file Sexual Orientation Not on file Plan of Treatment Upcoming Encounters Date Type Department Care Team (Late st Contact Info) Description 11/25/2024 10:00 AM EDT Ovarian Cancer Screening [facility] Gynecology [address] [place] [address] Health Maintenance Due Date Last Done Comments [facility]-Bone Density Scan 1948 [facility]-Depression Screening 1950 [facility]-Hepatitis C Screening 1950 [facility]-Medicare Annual Wellness (AWV) 1950 [facility]-Infant/Child/Adol SDOH Screenings 1950 [facility]- SDOH Screenings 01/30/1966 [facility]-Adult SDOH Screenings 01/30/1966 [facility]-DTaP,Tdap,and Td Vaccines (1 - Tdap) 01/30/1967 [facility]-Zoster Vaccines (1 of 2) 01/30/1998 [facility]-Pneumococcal Vaccine: 50+ Years (2 of 2 - PCV20 or PCV21) 02/08/2015 02/08/2014 [facility]-RSV Vaccine: 60+ Years or (1 - 1-dose 75+ series) 01/30/2023 [id number] Vaccine (2024- season) 2024 02/04/2023, 11/16/2021, 08/20/2021, Additional history exists [facility]-Influenza Vaccine (#1) 2024 11/11/2017, HPV Vaccines Aged Out No longer eligi ble based on patient's age to complete this topic [facility]-HIB Vaccines Aged Out No longer e ligible based on patient's age to complete this topic [facility]-Hepatitis A Vaccines Aged Out No longer eligible based on patient's age to complete this topic [facility]-IPV Vaccines Aged Out No longer e ligible based on patient's age to complete this topic [facility]-Rotavirus Vaccines Aged Out No lo nger eligible based on patient's age to complete this topic Insurance [place] [id number] [employer] MEDICARE Care Teams Sports Bookmaker Relationship Specialty Start Date End Date Be Eddy MD [address] [facility] [address] [place] [address] PCP - General 06/23/20
--- OUTSIDE RECORDS SUMMARY | 2024-11-12 10:28 | XMS_ITS | Encounter Summary ---
Author Organization [facility] Address [address] [place] [address] Care Team Providers Care Dyehouse Worker Name Role Phone Be Eddy MD Primary Care Provider [phone] Encounter Details Date Type Department Care Team (Late st Contact Info) Description 10/18/2013 External CPT II RADIO RIGGER - [facility] Social History Tobacco Use Types Packs/Day Years Used Date Smoking Tobacco: Never Assessed Comments Unknown Sex and Gender Information Value Date Recorded Sex Assigned at Not on file Legal Sex Female 1:35 PM EDT Gender Identity Not on file Sexual Orientation Not on file documented as of this encounter Plan of Treatment Not on file documented as of this encounter Visit Diagnoses Not on filedocumented in this encounter Care Teams Dyehouse Worker Relationship Specialty Start Date End Date Be Eddy MD [address] [facility] [address] [place] [address] PCP - General Internal Medicine 11/16/19 documented as of this encounter
--- OUTSIDE RECORDS SUMMARY | 2024-11-12 10:28 | XMS_ITS | Encounter Summary ---
Author Organization [facility] Address [address] [place] [address] Care Team Providers Care Cryptologic Supervisor Name Role Phone Be Eddy MD Primary Care Provider [phone] Encounter Details Date Type Department Care Team (Late st Contact Info) Description 02/07/2015 External CPT II [place] - [facility] Social History Tobacco Use [...] on filedocumented in this encounter Care Teams Cryptologic Supervisor Relationship Specialty Start Date End Date Be Eddy MD [address] [facility] [address] [place] [address] PCP - General Internal Medicine 11/16/19 documented as of this encounter
--- OUTSIDE RECORDS SUMMARY | 2024-11-12 10:28 | XMS_ITS | Encounter Summary ---
Author Organization [facility] Address [address] [place] [address] Care Team Providers Care Shirt Hemmer Name Role Phone Be Eddy MD Primary Care Provider [phone] Encounter Details Date Type Department Care Team (Late st Contact Info) Description 10/22/2016 External CPT II FINGERNAIL FORMER - [facility] Social History Tobacco Use Types Packs/Day Years Used Date Smoking Tobacco: Never Alcohol Use Standard Drinks/Week Comments No 0 (1 standard drink = 0.6 oz pur e alcohol) Comments No Sex and Gender Information Value Date Recorded Sex Assigned at Not on file Legal Sex Female 1:35 PM EDT Gender Identity Not on file Sexual Orientation Not on file documented as of this encounter Plan of Treatment Not on file documented as of this encounter Visit Diagnoses Not on filedocumented in this encounter Care Teams Shirt Hemmer Relationship Specialty Start Date End Date Be Eddy MD [address] [facility] [address] [place] [id number] PCP - General Internal Medicine 11/16/19 documented as of this encounter
--- OUTSIDE RECORDS SUMMARY | 2024-11-12 10:28 | XMS_ITS | Clinical Summary ---
Author Organization [facility] Address [address] [facility] [address] [place] [phone] Phone Care Team Providers Care Leather Grader Name Role Phone Unavailable Primary Care Provider Unavailabl e Social History Tobacco Use Types Packs/Day Years Used Date Smoking Tobacco: Never Assessed Comments Unknown Sex and Gender Information Value Date Recorded Sex Assigned at Not on file Legal Sex Female 2:24 PM EST Gender Identity Not on file Sexual Orientation Not on file Plan of Treatment Health Maintenance Due Date Last Done Comments Annual Wellness Exam 01/30/1953 Hepatitis C Screening 01/30/1966 DTaP/TDaP/Td (1 - Tdap) 01/30/1967 Pneumococcal Vaccine 50+ (1 of 1 - PCV) 01/30/1998 Zoster (1 of 2) 01/30/1998 Bone Density Screening 01/30/2013 RSV or 60+ (1 - 1-d ose 75+ series) 01/30/2023 COVID-19 Vaccine (1 - 2023-2 5 season) 2024 Influenza Vaccine (#1) 2024 Hepatitis B Vaccine Aged Out No longe r eligible based on patient's age to complete this topic Meningococcal B Vaccine Aged Out No l onger eligible based on patient's age to complete this topic
--- OUTSIDE RECORDS SUMMARY | 2024-11-12 10:28 | XMS_ITS | Clinical Summary ---
Author Organization [facility] Address [address] [place] [address] Care Team Providers Care Manager Shift Name Role Phone Be Eddy MD Primary Care Provider [phone] Allergies Active Allergy Reactions Criticality Noted Date Comments Ciprofloxacin Rash Low 08/08/2016 Terbinafine Rash Low 08/08/2016 Penicillins Rash Low 08/08/2016 Oxycodone-Acetaminophen Rash Low 08/08/2016 Sulfamethoxazole-Trimethoprim Hives,Itching,Rash Low 08/08/2016 Oxytetracycline Rash Low 08/08/2016 Medications rosuvastatin (CRESTOR) 10 MG tablet Take 1 tablet by mouth Daily. Active vitamin B-12 (CYANOCOBALAMIN ) 100 MCG tablet Take 0.5 tablets by mouth Daily. Active vitamin C (ASCORBIC ACID) 500 MG tablet Take 1 tablet by mouth Daily. Active vitamin E 400 UNIT capsule Take 1 capsule by mouth Daily. Active spironolactone (ALDACTONE) 25 MG tablet Take 1 tablet by mouth Daily. Active losartan (COZAAR) 50 MG tablet Take 1 tablet by mouth Daily. Active gabapentin (NEURONTIN) 100 MG capsule 08/14/2018 Active dilTIAZem CD (CARDIZEM CD) 120 MG 24 hr capsule 11/05/2019 Active pantoprazole (PROTONIX) 40 MG EC tablet 11/05/2019 Active furosemide (LASIX) 40 MG tablet 08/10/2019 Active estradiol (Minivelle) 0.05 MG/24HR patch Place 1 patch on the skin as directed by provider 2 (Two) Times a Week. 12 patch 3 11/18/2019 Active citalopram (CeleXA) 10 MG tablet Take 1 tablet by mouth Daily. 90 tablet 3 11/16/2019 Active ProFe 391.3 (180 Fe) MG capsule 180 mg. Active aspirin 81 MG EC tablet Take 1 tablet by mouth Daily. 06/20/2023 Active metoprolol succinate XL (TOPROL-XL) 25 MG 24 hr tablet Take 1 tablet by mouth Daily. 05/29/2023 Active Active Problems Problem Noted Date Diagnosed Date HTN (hypertension) 05/20/2023 Hyperlipidemia 05/20/2023 Status post total hip replacement, right 024 Degenerative arthritis of hip 04/09/2023 Anxiety 09/07/2018 History of suburethral sling procedure JACLYN 199408/18/2017 Enterocele 08/11/2017 Osteopenia of right femoral neck -1.7 2012 and 2 018 08/08/2016 Resolved Problems Problem Noted Date Diagnosed Date Resolved Date Cyst of right ovary 2.3 cm 200208/18/2017 11/16/2019 Bilateral breast cysts 2012 ( mammogram [facility]) 08/18/2017 11/16/2019 Diverticulosis 200208/18/2017 11/16/19 20 S/P vaginal hysterectomy, an terior/posterior repair 198708/08/2016 09/07/2018 H/O bladder repair surgery in 08/08/2016 08/18/2017 Melanoma 201208/08/2016 11/16/2019 Family History Medical History Relation Name Comments Pancreatic cancer Father Alzheimer's disease Mother Colon cancer Paternal Grandmother grandmother Osteoporosis Paternal Grandmother grandmother Heart attack Sister smoker Relation Name Status Comments Father Mother Paternal Grandmother grandmother Sister Alive Social History Tobacco Use Types Packs/Day Years Used Date Smoking Tobacco: Never Smokeless Tobacco: Never Tobacco Cessation:Counseling Given: Not Answered Alcohol Use Standard Drinks/Week Comments No 0 (1 standard drink = 0.6 oz pur e alcohol) AUDIT-C Answer Date Recorded Q1: How often do you have a drink containing alcohol? Never 05/20/2023 Q2: How many drinks containi ng alcohol do you have on a typical day when you are drinking? Patient does not drink Q3: How often do you have si x or more drinks on one occasion? Never 05/20/2023 Abuse Screen Answer Date Recorded Feels Unsafe at Home or Work/School no 05/20/2023 Feels Threatened by Someone no 10/2023 Does Anyone Try to Keep You From Having Contact with Others or Doing Things Outside Your Home? no 05/20/2023 Physical Signs of Abuse Present no 05/20/2023 Housing Stability Answer Date Recorded Current Living Arrangements home 10/2023 Potentially Unsafe Housing Conditions Not on cami e 05/20/2023 Family and Community Support Answer Ever e Recorded Help with Day-to-Day Activities Not on file 11/18/2022 Lonely or Isolated Not on file 11/18/2022 Employment Answer Date Recorded Do you want help finding or keeping work or a amelia b? Not on file 11/18/2022 Disabilities Answer Date Recorded Difficulty Concentrating, Remembering or Making Decisions no 05/20/2023 Difficulty Managing Errands Independently no 05/20/2023 Education Answer Date Recorded Help with school or training? Not on file Preferred Language Ethiopian 05/16/2023 Comments No Sex and Gender Information Value Date Recorded Sex Assigned at Not on file Legal Sex Female 1:35 PM EDT Gender Identity Not on file Sexual Orientation Not on file Last Filed Vital Signs Vital Sign Reading Time Taken Comments Blood Pressure 145/86 05/20/2023 3:00 PM EDT Pulse 65 05/20/2023 3:00 PM EDT Temperature 33.5 C (92.3 F) 06/11/2023 11:29 AM EDT Respiratory Rate 16 05/20/2023 3:00 PM EDT Oxygen Saturation 96% 05/20/2023 3:00 PM EDT Inhaled Oxygen Concentration - - Weight 77.6 kg (171 lb) 05/20/2023 6:23 AM EDT Height 157.5 cm (5' 2 ) 05/20/2023 6:23 AM EDT Body Mass Index 31.28 05/20/2023 6:23 AM EDT Plan of Treatment Health Maintenance Due Date Last Done Comments LIPID PANEL 1950 TDAP/TD VACCINES (1 - Tdap) 01/30/1967 COLOGUARD 01/30/1993 COLON CANCER SCREENING 5 YEA R SIGMOIDOSCOPY 01/30/1993 COLONOSCOPY 01/30/1993 COLORECTAL CANCER SCREENING 01/30/1993 CT COLONOGRAPHY 01/30/1993 FECAL OCCULT BLOOD TEST 01/30/1993 FIT Testing (1 year) 01/30/1993 Pneumococcal Vaccine 50+ (1 of 1 - PCV) 01/30/1998 ZOSTER VACCINE (1 of 2) 01/30/1998 ANNUAL WELLNESS VISIT 06/13/2016 HEPATITIS C SCREENING 06/13/2016 DXA SCAN 08/20/2019 08/19/2017, 07/0 06/2017, 08/14/2017 RSV Vaccine - Adults (1 - 1- dose 75+ series) 01/30/2023 INFLUENZA VACCINE 09/10/2024 COVID-19 Vaccine (6 - 2024-2 6 season) 2024 02/04/2023, 11/16/2021, 12/07/2020, Additional history exists MAMMOGRAM Discontinued 07/01/2019, 04/10, 03/31/2017, Additional history exists Medical Devices Implanted Type Area Internal Combustion Engineer Device Identifier Shelf Expiration Date Model / Serial / Lot Dev Contrl Tiss Stratafix Spiral Mncryl Ud 3/0 Pls 60cm - [id number] Implanted:Qty: 1 on 05/20/2023 by Ramiro Adhikari MD at [facility] Implant Right: Hip [employer] J [employer] J 09/09/2024 [id number] / / [id number] Dev Contrl Tiss Stratafix Symm Pds Plus Breezy Ct-1 45cm - [id number] Implanted:Qty: 1 on 05/20/2023 by Ramiro Adhikari MD at [facility] Implant Right: Hip [employer] J [employer] J 01/09/2025 [id number] / / [id number] Shll Acet R3 3h Std 50mm - [id number] Implanted:Qty: 1 on 05/20/2023 by Ramiro Adhikari MD at [facility] Implant Right: Hip [employer]W 01/27/2033 [id number] / / [id number] Scrw Sph Hd Reflection 6.5x25mm - [id number] Implanted:Qty: 1 on 05/20/2023 by Ramiro Adhikari MD at [facility] Implant Right: Hip [employer] 10/28/2032 [id number] / / [id number] Liner Acet R3 Xlpe 0d 96t69oe - [id number] Implanted:Qty: 1 on 05/20/2023 by Ramiro Adhikari MD at [facility] Implant Right: Hip [employer] 11/05/2032 [id number] / / [id number] Stem Fem/Hip Polarstem W/Colr Std Sz2 - [id number] Implanted:Qty: 1 on 05/20/2023 by Ramiro Adhikari MD at [facility] Implant Right: Hip [employer] 01/02/2030 [id number] / / [id number] Hd Fem/Hip Bioloxdelta R3 01/23 Sm 32mm Pls0 - [id number] Implanted:Qty: 1 on 05/20/2023 by Ramiro Adhikari MD at [facility] Implant Right: Hip [employer] 01/28/2033 [id number] / / [id number] Totl Hip Geo Matias Nephew - [id number] Implanted:Qty: 1 on 05/20/2023 by Ramiro Adhikari MD at [facility] Implant Right: Hip [employer] CAPHIPTOTAL SN2 / / Procedures Procedure Name Priority Date/Time Associated Diagnosis Comments SCANNED - MAMMO 07/01/2019 SCANNED - DEXA 08/19/2017 from Last 3 Months or Most Recently Relevant to Health Maintenance Results * SCANNED - MAMMO (07/01/2019) Anatomical Region Laterality Modality Other Chad Christianson MD CHART REVIEW TABS Final Resul t * SCANNED - DEXA (08/19/2017) Anatomical Region Laterality Modality Other Chad Christianson MD CHART REVIEW TABS Final Resul t from Last 3 Months or Most Recently Relevant to Health Maintenance Insurance guanako Shaikh [facility] [place] [address] [facility] Medicare Advantage [employer] PPO Advance Directives Documents on File Type Date Recorded Patient Commissioning Engineer Expl anation LIVING WILL - SCAN 04/18/2023 9:24 AM PAUL Lakhani WILL 2023 * CPR (Attempt to Resuscitate) (Latest Code Status on File) Date Activated Date Inactivated Comments 05/20/2023 10:34 AM 05/20/2023 6:39 PM Question Answer Comments Code Status (Patient has no pulse and is not breathing): CPR (Attempt to Resuscitate) Medical Interventions (Patie nt has pulse or is breathing): Full Support Care Teams Manager Shift Relationship Specialty Start Date End Date Be Eddy MD [address] [place] [facility] [address] [place] [address] PCP - General Internal Medicine 11/16/19
== END 2024-11-11 23:59 | disposition home or self-care (01) ==
LOC: LAB.DROPOF 11-12 10:25
PROVIDERS: PCP Obstetrics & Gynecology; Visit Provider Obstetrics & Gynecology
DX: R30.0 Dysuria (principal); N94.89 Other specified conditions associated with female genital organs and menstrual cycle
CPT/HCPCS: 87086

== ENCOUNTER 2025-01-24 10:00 | Day surgery (SDC) | payer MEDICARE, SELFPAY ==
--- NOTE | 2025-01-19 06:58 | P.HP_ITS ---
History of Present Illness *Admission Date: 01/24/25 *History of present illness: Mrs. Alejandro is a 74-year-old female who is here for diagnostic EGD. She has had a history of esophageal spasm and dysphagia. She had an EGD in November 2022 (Pipo Brown MD) and was found to have esophageal dysmotility or spasm and a large hiatal hernia. She did have esophageal dilation. The patient reports today that if she overeats, food feels as if it gets hung up or stuck at that top portion of her stomach in the epigastrium. Also, the patient reports having a sinking feeling in her chest sometimes postprandially. She reports no bloating, gassiness, belching, nausea, early satiety, abdominal pain or dysphagia presently. The patient's cardiac evaluation was normal. She does state that her symptoms come and go. The patient did have a colonoscopy in September 2022 (Willie Salazar MD). The patient's father had pancreatic cancer. The examination is deemed medically necessary for diagnostic EGD. The patient has been seen, interviewed and examined prior to the procedure by both myself and the anesthesia provider. [facility] Disclaimer: The information contained in this section may have been updated after the p ataquilino was seen, as this information can be updated by other users. Medical History Hematuria without proteinuria Lichen sclerosus et atrophicus of the vulva Vulvar irritation Vaginal burning Left arm pain Chest pain Vaginal vault prolapse after hysterectomy Menopausal syndrome on hormone replacement therapy Sinus bradycardia Diastolic dysfunction HLD (hyperlipidemia) HTN (hypertension) CAD (coronary artery disease) Dyspnea Surgical History History of cardiac cath History of tonsillectomy Previous back surgery H/O bladder repair surgery History of heart surgery H/O hernia repair History of partial hysterectomy History of bunionectomy Stented coronary artery Family History (Updated 01/24/25 @ 10:26 by Quiana Santoro RN) Grandmother Colon cancer Father Pancreatic cancer Other Alzheimer disease Cancer Social History (Updated 01/24/25 @ 10:26 by Quiana Santoro RN) Smoking Status: Never smoker alcohol intake: never substance use type: denies use current occupational status: retired Travel in the last 8 weeks?: None household members: spouse housing: house caffeine: Yes Have you lived/traveled outside US in past 30 days?: No Contact w/someone who lives/traveled outside US past 30 days?: No Exposure to someone with infectious disease in past 14 days?: No Do you have a fever (greater than 100.4 F or 38 C)?: No Have you tested positive for COVID-19?: No Exposed to someone with COVID-19 in past 14 days?: No Do you have a sore throat?: No Do you have a cough?: No Do you have any weakness?: No Are you experiencing any nausea/vomitting?: No Do you have any diarrhea?: No Are you experiencing any unusual bleeding?: No Do you have any muscle aches/pain?: No Do you have any abdominal pain?: No Are you experiencing loss of taste or smell?: No Other Medical History Have you received the Flu Vaccine for this season: Yes Have you received the Pneumonia Vaccine: Yes Review of Systems Review of Systems Review of systems (narrative): Negative *Cardiovascular Comments: Negative *Gastrointestinal Comments: Negative *Genitourinary Comments: Negative *Musculoskeletal Comments: Negative *Neurologic Comments: Negative Meds Home Medications and Allergies Home Medications ?Medication ?Instructions ?Recorded ?Confirmed ?Type aspirin 81 mg tablet,delayed 81 mg PO DAILY 07/24/17 1 03/24/24 History release (Adult Low Dose Aspirin) diltiazem HCl 120 mg See Rx Instructions .Route 0 05/27/24 01/21/25 Rx capsule,extended release 24 hr .COMPLEX #90 caps spironolactone 25 mg tablet See Rx Instructions .Route 07/14/24 01/24/25 Rx .COMPLEX #90 tabs pantoprazole 40 mg tablet,delayed See Rx Instructions .Route 08/03/24 01/21/25 Rx release .COMPLEX #90 tabs metoprolol succinate 25 mg See Rx Instructions .Route 08/09/24 01/21/25 Rx tablet,extended release 24 hr .COMPLEX #90 tabs estradiol 0.05 mg/24 hr semiweekly See Rx Instructions .Route 08/24/24 01/21/25 Rx transdermal patch .COMPLEX #24 patches furosemide 40 mg tablet See Rx Instructions .Route 0 08/26/24 01/21/25 Rx .COMPLEX #90 tabs citalopram 10 mg tablet See Rx Instructions .Route 0 11/01/24 01/21/25 Rx .COMPLEX #90 tabs polysaccharide iron complex 180 mg See Rx Instructions .Route 11/01/24 01/21/25 Rx iron capsule (Pro Fe) .COMPLEX #90 caps gabapentin 100 mg capsule 100 mg PO DAILY PRN Pain 04/0601/21/25 History rosuvastatin 10 mg tablet 10 mg PO ONCE #90 tabs 11/1501/21/25 Rx ascorbate calcium (vitamin C) 500 500 mg PO DAILY 10/0401/21/25 History mg tablet mecobalamin (vitamin B12) 2,500 2,500 mcg PO DAILY 10/0401/21/25 History mcg chewable tablet vitamin E mixed 400 unit capsule 400 unit PO DAILY 06/0401/24/25 History losartan 50 mg tablet 50 mg PO DAILY #90 tabs 01/1001/21/25 Rx New Prescriptions to Start Prescriptions: Allergies Allergy/AdvReac Type Severity Reaction Status Date / Time ciprofloxacin (From Cipro) Allergy Mild ITCHING Verified 01/24/25 10:16 oxytetracycline (From Allergy Mild ITCHING Verified 01/24/25 10:16 Terramycin) terbinafine (From Lamisil) Allergy Mild ITCHING Verified 01/24/25 10:16 acetaminophen (From Percocet) Allergy Unknown ITCHING Verified 01/24/25 10:16 oxycodone (From Percocet) Allergy Unknown ITCHING Verified 01/24/25 10:16 Penicillins Allergy Unknown Rash Verified 01/24/25 10:16 sulfamethoxazole (From Allergy Unknown HIVES Verified 01/24/25 10:16 Septra) trimethoprim (From Septra) Allergy Unknown ITCHING Verified 01/24/25 10:16 cefprozil (From Cefzil) Allergy ITCHING Verified 01/24/25 10:16 Exam *Routine HEENT Exam Head: Present normocephalic Eye: Present EOMI and PERRL ENT: Present mucous membranes moist *Routine Neck Exam Neck: Present supple *Routine Respiratory Exam Respiratory: Present CTA bilaterally *Routine Cardiovascular Exam Cardiovascular: Present RRR *Routine Abdominal Exam Abdominal: Present soft and normoactive bowel sounds; Absent tenderness *Routine Rectal Exam Rectal:: deferred *Routine Genitalia Exam Genitalia:: deferred *Routine Extremities Exam Extremities: Absent cyanosis, clubbing or edema *Routine Skin Exam Skin: Present warm; Absent rash *Routine Neurological Exam Neurological: Present alert and oriented X3 Assessment and Plan *Assessment and plan (1) History of esophageal spasm: Status: Acute Category: Medical Code(s): Z87.19 - Personal history of other diseases of the digestive system (2) Large hiatal hernia: Status: Acute Category: Medical Code(s): K44.9 - Diaphragmatic hernia without obstruction or gangrene (3) Chest pressure: Status: Acute Category: Medical Code(s): R07.89 - Other chest pain (4) Dysphagia: Status: Acute Category: Medical Code(s): R13.10 - Dysphagia, unspecified (5) Hiatal hernia with GERD: Problem Comment: GERD is well-controlled, no swallowing problems, the only current symptom is a sinking feeling in the chest Status: Chronic Category: Medical Code(s): K44.9 - Diaphragmatic hernia without obstruction or gangrene; K21.9 - Gastro- esophageal reflux disease without esophagitis (6) Atypical chest pain: Problem Comment: The sinking feelings in the chest are probably noncardiac and related to the la rge hiatal hernia Status: Chronic Category: Medical Code(s): R07.89 - Other chest pain Plan A/P: 1. Dysphagia with chest pressure/esophageal chest pain and known hiatal hernia is the preprocedural diagnosis. The patient will be anesthetized/sedated using MAC sedation. The patient has been seen and examined. Cardiac and lung assessment prior to the examination is stable. Proceed with planned diagnostic EGD.
[2025-01-21 15:29] VITALS: BMI 30.7
--- NOTE | 2025-01-24 06:45 | P.PCN_ITS ---
[facility] Procedure Note Date: 01/24/25 Time: 11:31 Procedure Note:: Upper Endoscopy Procedure Report: Esophagogastroduodenoscopy with cold biopsies and TTS balloon dilation Endoscopost: Con Brush II, MD Referring Physician: Matthew Pace, DO [address] [id number] [phone], [place] [address] Date of Procedure: January 24, 2025 Equipment: Olympus GIF-1100 standard upper endoscope Sedation: MAC sedation Indications: Mrs. Alejandro is a 74-year-old female who is here for diagnostic EGD. She has had a history of esophageal spasm and dysphagia. She had an EGD in November 2022 (Pipo Brown MD) and was found to have esophageal dysmotility or spasm and a large hiatal hernia. She did have esophageal dilation. The patient reports today that if she overeats, food feels as if it gets hung up or stuck at that top portion of her stomach in the epigastrium. Also, the patient reports having a sinking feeling in her chest sometimes postprandially. She reports no bloating, gassiness, belching, nausea, early satiety, abdominal pain or dysphagia presently. The patient's cardiac evaluation was normal. She does state that her symptoms come and go. The patient did have a colonoscopy in September 2022 (Willie Salazar MD). The patient's father had pancreatic cancer. The examination is deemed medically necessary for diagnostic EGD. Procedure: Prior to the procedure, a history and physical exam was performed, and patient's medications and allergies were reviewed. The risks, benefits and alternatives of the sedation and procedure were discussed with the patient. All questions were answered and informed consent was obtained. The patient was brought to the procedure room. Patient identification and proposed procedure were verified by the physician and the nurse. The patient was placed in a left lateral decubitus position and the scope was passed under direct vision. Throughout the procedure, the patient's blood pressure, pulse, and oxygen saturations were monitored continuously. The upper GI endoscopy was accomplished without difficulty. The patient tolerated the procedure well. Findings: The scope was passed directly into the upper esophagus and advanced to the third portion of the duodenum. The post bulbar duodenum and duodenal bulb were normal with normal mucosa and conniventes. 2 cold biopsies were taken from the second portion of the duodenum for the disaccharidase assay. The scope was withdrawn through a normal duodenal bulb and pylorus into the stomach. There was moderate linear reactive gastropathy of the antrum. Upon retroflexion there was a large 9 to 10 cm hiatal hernia (paraesophageal type). The diaphragmatic hiatus was at 39 to 40 cm from the incisors. The top of the gastric folds was at 30 cm leaving a 9 to 10 cm hiatal hernia. The majority of the stomach was above the hiatus. The remainder of the body and fundus of the stomach were normal in appearance. Cold biopsies were taken from the antrum. The scope was then withdrawn into the esophagus. There was no evidence of reflux esophagitis or Mcneal's. There were tertiary contractions. The entire esophagus was dilated to 20 mm/60 [place] with a TTS hydrostatic balloon. There was mild resistance at the cricopharyngeus. The remainder of the esophageal mucosa was normal. Impression: 1. Large 9 to 10 cm hiatal hernia (paraesophageal type) 2. Moderate linear reactive gastropathy of antrum Plan: Based upon the size and nature of the paraesophageal hernia and the patient's symptoms, I do feel that surgical repair is warranted because of the risk of gastric volvulus.
[2025-01-24 10:19] VITALS: BP 125/62; PULSE 66; RESP 16; TEMP 36.1; O2SAT 95
[2025-01-24] MEDS: LACTATED RINGERS 1000ML 1,000 ML 50 ML IV (10:28)
--- NOTE | 2025-01-24 10:42 | EXP.ANES.CKL ---
[facility] Disclaimer: The information contained in this section may have been updated after the patient was seen, as this information can be updated by other users. Medical History Hematuria without proteinuria Lichen sclerosus et atrophicus of the vulva Vulvar irritation Vaginal burning Left arm pain Chest pain Vaginal vault prolapse after hysterectomy Menopausal syndrome on hormone replacement therapy Sinus bradycardia Diastolic dysfunction HLD (hyperlipidemia) HTN (hypertension) CAD (coronary artery disease) Dyspnea Surgical History History of cardiac cath History of tonsillectomy Previous back surgery H/O bladder repair surgery History of heart surgery H/O hernia repair History of partial hysterectomy History of bunionectomy Stented coronary artery Family History (Updated 01/24/25 @ 10:26 by Quiana Santoro RN) Grandmother Colon cancer Father Pancreatic cancer Other Alzheimer disease Cancer Social History (Updated 01/24/25 @ 10:26 by Quiana Santoro RN) Smoking Status: Never smoker alcohol intake: never substance use type: denies use current occupational status: retired Travel in the last 8 weeks?: None household members: spouse housing: house caffeine: Yes Have you lived/traveled outside [place] in past 30 days?: No Contact w/someone who lives/traveled outside [place] past 30 days?: No Exposure to someone with infectious disease in past 14 days?: No Do you have a fever (greater than 100.4 F or 38 C)?: No Have you tested positive for COVID-19?: No Exposed to someone with COVID-19 in past 14 days?: No Do you have a sore throat?: No Do you have a cough?: No Do you have any weakness?: No Are you experiencing any nausea/vomitting?: No Do you have any diarrhea?: No Are you experiencing any unusual bleeding?: No Do you have any muscle aches/pain?: No Do you have any abdominal pain?: No Are you experiencing loss of taste or smell?: No [facility] Anesthesia Checklist Patient Identification Patient Identification: Arm Band and Verbal (Name & ) Structural Data Admitted From: Home Planned Operative Procedure/s: EGD Consent for Planned Operative Procedure(s) Verified: Yes Verified Documents: Surgical Consent and History and Physical NPO Status Verified Time NPO: 00:00 Additional verifications Anesthesia Reactions: No Previous Colonoscopy: Yes Airway Assessment Mallampati Score:: Class II C-Spine Mobility Assessed: Yes TMJ Mobility Assessed: Yes Dentition: Good Dentition Neurological Assessment Level of Consciousness: Awake, Alert and Appropriate Hx Seizures: No Numbness or tingling in extremities: No Anesthesia Plan Anesthesia Risk discussed: Yes Anesthesia Plan: Verified ASA Class: II Anesthesia Type: MAC
[2025-01-24 11:34] VITALS: BP 124/75; PULSE 72; RESP 18; TEMP 36.1; O2SAT 92
[2025-01-24 11:49] VITALS: BP 129/68; PULSE 70; RESP 18; TEMP 36.1; O2SAT 94
[2025-01-24 12:04] VITALS: BP 100/51; PULSE 59; RESP 18; TEMP 36.1; O2SAT 99
[2025-01-28 15:01] LABS: Interpretation Notes (.); Lactase 52.67 (>/= 14.0); Maltase 231.24 (>/= 110.0); Palatinase 16.59 (>/= 8.5); Reference Notes (.); Sucrase 62.67 (>/= 25.0)
== END 2025-01-24 12:25 | disposition home or self-care (01) ==
PROVIDERS: PCP Student in an Organized Health Care Education/Training Program; Visit Provider Internal Medicine Gastroenterology
PROC: 0DJ08ZZ Inspection of Upper Intestinal Tract, Via Natural or Artificial Opening Endoscopic (ICD-10-PCS; CPT 43239; principal; 2025-01-24 11:30)
DX: K22.4 Dyskinesia of esophagus (principal); K31.89 Other diseases of stomach and duodenum; K44.9 Diaphragmatic hernia without obstruction or gangrene; K21.9 Gastro-esophageal reflux disease without esophagitis; I10 Essential (primary) hypertension; I25.10 Atherosclerotic heart disease of native coronary artery without angina pectoris; E78.5 Hyperlipidemia, unspecified; Z79.82 Long term (current) use of aspirin; Z88.2 Allergy status to sulfonamides; Z87.19 Personal history of other diseases of the digestive system; Z88.1 Allergy status to other antibiotic agents; Z88.6 Allergy status to analgesic agent; Z88.8 Allergy status to other drugs, medicaments and biological substances; Z88.5 Allergy status to narcotic agent
CPT/HCPCS: 43239; 43249; 82657; 88305; C1726; J2003; J2704; J7120